=== PATIENT | male | born 1950 | race Caucasian/White ===

== ENCOUNTER 2018-03-02 11:26 | Emergency (ER) | payer MEDICARE, OTHER | END 2018-03-02 12:42 | disposition home or self-care (01) | LOC: NAV ERS 11:26 | DX: S61.011A Laceration without foreign body of right thumb without damage to nail, initial encounter (principal); I48.91 Unspecified atrial fibrillation; E78.5 Hyperlipidemia, unspecified; I10 Essential (primary) hypertension; Z87.891 Personal history of nicotine dependence; Z79.899 Other long term (current) drug therapy; Z79.82 Long term (current) use of aspirin; W26.8XXA Contact with other sharp object(s), not elsewhere classified, initial encounter | CPT/HCPCS: 99283 ==

== ENCOUNTER 2024-02-12 07:19 | Outpatient (CLI) | payer MEDICARE, OTHER ==
[2024-02-12] MEDS ORDERED: Iopamidol 370 76% 100 ML VIAL ONE (09:00)
== END 2024-02-12 07:20 | disposition home or self-care (01) ==
LOC: NAV CT 07:19
PROVIDERS: ATTEND Nurse Practitioner
DX: N28.89 Other specified disorders of kidney and ureter (principal); N28.1 Cyst of kidney, acquired; K80.20 Calculus of gallbladder without cholecystitis without obstruction; K57.30 Diverticulosis of large intestine without perforation or abscess without bleeding; R93.421 Abnormal radiologic findings on diagnostic imaging of right kidney; I70.90 Unspecified atherosclerosis
CPT/HCPCS: 36415; 74178; 82565; Q9967